=== PATIENT | male | born 1985 | race Caucasian/White ===

== ENCOUNTER → 2020-07-26 | Outpatient (CLI) | payer OTHER ==
[~2020-07-26] MED LIST: KEFLEX500 MG PO; MOTRIN800 MG PO
== END | disposition home or self-care (01) ==
LOC: COVID19 15:29
PROVIDERS: ATTEND Internal Medicine
DX: Z20.828 Contact with and (suspected) exposure to other viral communicable diseases (principal)

== ENCOUNTER → 2020-08-09 | Outpatient (CLI) | payer OTHER | END | disposition home or self-care (01) | LOC: COVID19 13:43 | PROVIDERS: ATTEND Family Medicine | DX: U07.1 COVID-19 (principal) ==

== ENCOUNTER 2021-08-14 20:24 | Emergency (ER) | payer SELFPAY ==
[~2021-08-14] VITALS: Ht 177.8 cm; Wt 79.4 kg
== END 2021-08-14 23:57 | disposition home or self-care (01) ==
LOC: ED 20:24
DX: S01.01XA Laceration without foreign body of scalp, initial encounter (principal); S01.312A Laceration without foreign body of left ear, initial encounter; W22.03XA Walked into furniture, initial encounter; Y93.89 Activity, other specified; Y92.89 Other specified places as the place of occurrence of the external cause; Y99.9 Unspecified external cause status

== ENCOUNTER → 2022-07-18 | Outpatient (CLI) | payer BC | END | disposition home or self-care (01) | LOC: RAD 14:38 | PROVIDERS: ATTEND Family Medicine | DX: S60.221A Contusion of right hand, initial encounter (principal); X58.XXXA Exposure to other specified factors, initial encounter; Y93.89 Activity, other specified; Y92.89 Other specified places as the place of occurrence of the external cause; Y99.8 Other external cause status ==